=== PATIENT | female | born 1990 | race Two or more races ===

== ENCOUNTER 2016-12-28 22:57 | Emergency (ER) | payer SELFPAY ==
[~2016-12-28] VITALS: Ht 157.5 cm; Wt 49.9 kg
--- NOTE | 2016-12-28 23:14 | Emergency Room Report ---
History of Present Illness General Chief Complaint: Lower Extremity Injury Source: Patient Present Illness HPI This is a 26-year-old female with no past medical history. She does have a history of marijuana abuse. She is homeless. [place] the [place] 2 days. She went to the police station because she wants some psychiatric help. Also said that she has twisted her right foot. Painful. They sent her here to be evaluated. Patient denies any suicidal thought homicidal thought. Does not want to go to a penitentiary [place] Denies any other complaint. Allergies: Coded Allergies: No Known Allergies (Unverified , 12/28/16) Patient History Past Medical History: see triage record, old chart reviewed Past Surgical History: none Pertinent Family History: none Social History: Reports: smoking, drug use Last Menstrual Period: 2 months ago Now: No Immunizations: other Reviewed Nursing Documentation: PMH: Agreed, PSxH: Agreed Nursing Documentation-PMH Past Medical History: No History, Except For Review of Systems Eye: Denies: eye pain, blurred vision ENT: Denies: ear pain, nose congestion, throat swelling Respiratory: Denies: cough, shortness of breath Cardiovascular: Denies: chest pain, palpitations Gastrointestinal: Denies: abdominal pain, diarrhea, nausea, vomiting Musculoskeletal: Reports: muscle pain, Denies: back pain, joint pain Skin: Denies: rash Neurological: Denies: headache, numbness Endocrine: Denies: increased thirst, increased urine Hematologic/Lymphatic: Denies: easy bruising All Other Systems: negative except mentioned in HPI Physical Exam Vital Signs Date Time Temp Pulse Resp B/P (MAP) Pulse Ox O2 Delivery O2 Flow Rate FiO2 12/28/16 22:51 98.4 94 18 124/72 99 Room Air vitals normal Sp02 EP Interpretation: reviewed, normal General Appearance: well appearing, no apparent distress, alert Head: normocephalic, atraumatic Eyes: bilateral eye PERRL, bilateral eye EOMI ENT: hearing grossly normal, normal pharynx Neck: full range of motion, supple, no meningismus Respiratory: chest non-tender, lungs clear, normal breath sounds Cardiovascular #1: regular rate, rhythm, no murmur Gastrointestinal: normal bowel sounds, non tender, no mass, no organomegaly, no bruit, non-distended Musculoskeletal: back normal, gait/station normal, normal range of motion, other - Over the ball of the foot there is a 4 cm blistered that his skin avulsion now. No evidence of infection. Pulses normal. Psychiatric: mood/affect normal Skin: warm/dry Medical Decision Making Diagnostic Impression: Primary Impression: Blister of foot without infection Qualified Codes: S90.821A - Blister (nonthermal), right foot, initial encounter ER Course Patient with a foot blistered. This is secondary to walking and pressure. No evidence of infection. No evidence of necrotizing fasciitis or DVT. She admits to using marijuana but not suicidal homicidal. No criteria for psychiatric evaluation/5150. Last Vital Signs Date Time Temp Pulse Resp B/P (MAP) Pulse Ox O2 Delivery O2 Flow Rate FiO2 12/28/16 22:51 98.4 94 18 124/72 99 Room Air Status: improved Disposition: HOME, SELF-CARE Condition: Stable Additional Instructions: Followup with your Dr. in 7 days. Return if symptom worsen. RIP KENDALL M.D. Dec 28, 2016 23:14
[2016-12-28 23:30] VITALS: BP 124/72
== END 2016-12-28 23:30 | disposition home or self-care (01) ==
LOC: EDBD 22:57 → EMR 23:10
DX: S90.821A Blister (nonthermal), right foot, initial encounter (principal); Y93.01 Activity, walking, marching and hiking; Y92.89 Other specified places as the place of occurrence of the external cause; F12.10 Cannabis abuse, uncomplicated
CPT/HCPCS: 99282